=== PATIENT | male | born 1940 | race Caucasian/White ===

== ENCOUNTER 2025-06-08 15:22 | Emergency (ER) | payer MEDICARE, OTHER, SELFPAY ==
[2025-06-08 15:23] VITALS: BP 140/86
--- NOTE | 2025-06-08 16:02 | ED.GENMED ---
History of Present Illness
General
Chief Complaint: Nasal Problem
Source: patient
Exam Limitations: none
Time Seen by Provider: 06/08/25 15:47
History of Present Illness
History of Present Illness:
85yoM with a history of hypertension, hyperlipidemia, deviated septum, and BPH presenting with his daughter for evaluation of intermittent nose bleeds. Patient reports intermittent nosebleeds over the past 3 months which only occur at nighttime and
usually start around 9pm. His nose will also become clogged and he has difficulty sleeping due to his. He never has any bleeding during the day. He has been inserting Q-tips into the nose to remove the old blood as well as using nasal saline. He
researched his symptoms online and believes his nose bleeds may be related to nerve damage in his spine as he has a history of chronic low back pain and bilateral rotator cuff tears. He called ENT but they were unable to get him in for several
weeks so he did not make the appt. He does not take any blood thinners.
Past History
Past History
ED Past Medical History: HTN, Hypercholesterolemia, Other (arthritis neck, back and shoulders) and Other
ED Past Surgical History: Orthopedic and Other (Hernia)
Social History
Tobacco: Non-smoker
Alcohol: None
Drug: None
Personal: Single
Living: alone
Employment: Retired
Family History
Family History: Other (Noncontributory)
Phy Exam
General Physical Exam
General Presentation: well appearing and no apparent distress
General Skin: warm and dry
General Habitus: normal and elderly
General Mental: alert
ENT Exam
ENT Exam: pharynx normal and other (No active bleeding noted from either nare. No blood in posterior oropharynx. )
Pulmonary Exam
Pulmonary Exam: no respiratory distress
Neurological Exam
Neurological Exam: alert
[place] Coma Scale
Eye Opening: Spontaneous
Verbal Response: Oriented
Motor Response: Obeys Commands
GCS Total Score: 15
Skin Exam
Skin Exam: normal color and warm/dry
Psychiatric Exam
Psychiatric Exam: normal mood/affect
Course
Orders/Labs/Results
Orders:
Orders
06/08/25 16:11
Basic Metabolic Panel Urgent
Complete Blood Count/With Diff Urgent
Abnormal Lab Results
06/08/25
16:11
RBC 3.95 L 10^6/uL
(4.70-6.10)
Hgb 12.6 L g/dL
(13.0-18.0)
Hct 36.4 L %
(39.0-52.0)
MCH 31.9 H pg
(27.0-31.0)
MPV 10.7 H fL
(7.4-10.4)
Absolute Neuts (auto) 6.8 H 10^3/uL
(1.4-6.5)
Absolute Lymphs (auto) 0.9 L 10^3/uL
(1.2-3.4)
Neutrophils % 81.4 H %
(42.2-75.2)
Lymphocytes % 10.5 L %
(20.5-51.1)
Glucose 129 H mg/dl
(70-99)
06/08/25 16:11
06/08/25 16:11
Vital Signs
Initial and Last Documented VS:
Initial Vital Signs
Temp Pulse Resp BP Pulse Ox
98.9 F 76 18 140/86 98
06/08/25 15:23 06/08/25 15:23 06/08/25 15:23 06/08/25 15:23 06/08/25 15:23
Last Documented Vital Signs
Temp Pulse Resp BP Pulse Ox
98.9 F 76 18 140/86 98
06/08/25 15:23 06/08/25 15:23 06/08/25 15:23 06/08/25 15:23 06/08/25 16:03
MDM/Problems Addressed
Differential Diagnosis Includes:
85yoM here with intermittent nosebleeds x 3 months that only occur at nighttime as well as nasal congestion. VSS. He is well-appearing in no acute distress. No active bleeding noted on exam. Differential diagnosis includes: Nosebleed related to
recurrent picking, epistaxis related to dryness, acute blood loss anemia
Lab work obtained and hemoglobin is mildly low at 12.6. Remainder of labs unremarkable. Patient is very concerned due to his ongoing symptoms. I explained that his bleeding is likely exacerbated by him inserting Q-tips in his nostrils and he was
advised to stop this. He was instructed to use Flonase nasal spray as well as Zyrtec for congestion. He was also advised to use saline nasal spray, Neosporin, and cool mist humidifier to prevent dryness. He was advised to f/u with ENT. Patient
discharged in stable condition.
*Pulse Oximetry
SaO2: 98
Oxygen Mode of Delivery: Room air
Patient hypoxic: no
*Critical Care Note
Total Time (30-74mins, 75-104mins- exclusive of procedures): Not Applicable
ED Attending Note
-
Portions of this chart may have been created with voice recognition software.� Occasional wrong word or��sound alike� substitutions may have occurred due to the inherent limitations of voice recognition software.
Discharge Plan
Departure
Patient Disposition: Home (Routine Discharge)
Date of Disposition: 06/08/25
Time of Disposition: 17:11
Patient with high blood pressure during this ER visit?: Yes
Discharge Problem:
Nasal congestion, Recurrent epistaxis
Instructions: Nosebleeds (DC)
Prescriptions:
No Action
finasteride 5 MG tablet
5 mg PO DAILY
ok-smv-IZ-Oy-Jg-tkonmft-lutein 1 EACH tablet
1 ea PO DAILY
cholecalciferol (vitamin D3) [Vitamin D3] 1,000 UNIT tablet
1,000 unit PO DAILY
atorvastatin 10 MG tablet
10 mg PO DAILY
amlodipine 10 MG tablet
5 mg PO DAILY
naproxen 250 mg tablet
250 mg PO DAILY Qty: 7 0RF
Referrals:
Chauncey Babin MD [Active, Otology]
Nicolas Hernandez MD [Active, ENT]
Activity Restrictions/Additional Instructions:
Use Flonase nasal spray daily to help with congestion. You should start taking Zyrtec as well. Apply Neosporin to the base of the nostrils before bedtime and use a cool mist humidifier in your bedroom at night.
Stop using Q-tips!
Please call on Wednesday to schedule a follow-up appointment with an ENT.
Return to the ER with any worsening symptoms or if bleeding is uncontrolled.
Interventions
Interventions:
*Nursing Disposition Last Done: 06/08/25 17:24
ED-EENT Assessment Last Done: 06/08/25 16:23
Discharge Date and Time
Discharge Date/Time: 06/08/25 17:24
Print Language: [place]
[2025-06-08 16:19] LABS: Hematocrit 36.4 % (39.0-52.0); Hemoglobin 12.6 g/dL (13.0-18.0); Mean Corp Hgb Conc. 34.6 g/dL (33.0-37.0); Mean Corpuscular Volume 92.2 fL (80.0-94.0); Nucleated Red Blood Cells % 0 % (-); Platelet Count 165 10^3/uL (130-400); Red Cell Dist. Width 13.2 % (11.5-14.5)
[2025-06-08 16:51] LABS: Blood Urea Nitrogen 20 mg/dl (9-20); Calcium 9.7 mg/dl (8.4-10.2); Carbon Dioxide 26 mmol/L (22-30); Chloride 105 mmol/L (98-107); Glucose 129 mg/dl (70-99); Potassium 4.0 mmol/L (3.5-5.1); Sodium 137 mmol/L (135-145); eGFR > 60.00
== END 2025-06-08 17:24 | disposition home or self-care (01) ==
LOC: EMR 15:22
PROVIDERS: Physician Assistant; EMERGENCY PHYSICIAN Student in an Organized Health Care Education/Training Program
DX: R09.81 Nasal congestion (principal); R04.0 Epistaxis; I10 Essential (primary) hypertension; E78.00 Pure hypercholesterolemia, unspecified; N40.0 Benign prostatic hyperplasia without lower urinary tract symptoms; M19.011 Primary osteoarthritis, right shoulder; M19.012 Primary osteoarthritis, left shoulder
CPT/HCPCS: 99283; 80048; 85025

== ENCOUNTER → 2025-09-04 15:15 | Outpatient (REF) | payer MEDICARE, OTHER, SELFPAY | LOC: CLAB 15:15 | PROVIDERS: ATTENDING PHYSICIAN Otolaryngology | DX: J32.9 Chronic sinusitis, unspecified (principal) | CPT/HCPCS: 87070; 87077; 87186; 87205 ==